=== PATIENT | male | born 1930 | race African-American/Black ===

== ENCOUNTER 2018-06-17 09:23 | Inpatient (IN) ==
[2018-06-17] MEDS ORDERED: SODIUM CHLORIDE 0.9% 500 ML IV STA (10:04)
[2018-06-17 10:30] LABS: Basophils # 0.1 10*3/uL (0.0-0.2); Basophils % 0.7 % (0.0-0.8); Eosinophils # 0.6 10*3/uL (0.0-0.87); Eosinophils % 8.4 % (0.00-10.9); Hematocrit 39.4 VOL% (42.0-52.0); Hemoglobin 12.8 GM/DL (14.0-18.0); Immature Granulocytes % 0.4 %; Immature Granulocytes Absolute 0.03 #; Lymphocytes # 1.4 10*3/uL (1.4-4.0); Mean Corpuscular HGB Conc 32.5 GM/DL (32-36); Mean Corpuscular Hemoglobin 30 PG (27-34); Mean Corpuscular Volume 93.6 FL (87-102); Mean Platelet Volume 11.6 FL (9.6-12.0); Monocytes # 0.6 10*3/uL (0.11-0.8); Monocytes % 7.9 % (1.7-12.7); Neutrophils # 4.8 10*3/uL (1.4-7.4); Neutrophils % 63.6 % (38.7-73.9); Platelet Count 213 T/CUMM (130-400); Red Blood Count 4.21 MC/CUMM (3.8-5.5); Red Cell Distribution Width 13.5 % (9.3-17.3); White Blood Count 7.5 T/CUMM (4-12)
[2018-06-17 10:46] LABS: PT Patient Result 10.5 SECS
[2018-06-17 10:52] LABS: Alanine Aminotransferase 18 U/L (16-61); Albumin 3.6 G/DL (3.4-5.0); Alkaline Phosphatase 111 U/L (45-117); Aspartate Amino Transferase 20 U/L (0-37); Blood Urea Nitrogen 120 MG/DL (7-18); Calcium 9.5 MG/DL (8.5-10.1); Glucose 114 MG/DL (74-106); Sodium 136 MMOL/L (136-145); Total Protein 8.6 G/DL (6.4-8.3)
[2018-06-17] MEDS ORDERED: cefTRIAXone 1,000 MG in SODIUM CHLORIDE 0.9% 100 ML IV STA (10:56)
[2018-06-17] MEDS ORDERED: ACETAMINOPHEN 325 MG TABLET PO PRN (11:46)
[2018-06-17] MEDS ORDERED: GLUCAGON 1 MG VIAL IM PRN (11:46)
[2018-06-17] MEDS ORDERED: ONDANSETRON 4 MG/2 ML VIAL IV PRN (11:46)
[2018-06-17] MEDS ORDERED: DEXTROSE 50% 25 GM/50 ML VIAL IV PRN (11:46)
[2018-06-17] MEDS ORDERED: LACTULOSE 20 GM/30 ML UDCUP PO PRN (11:46)
[2018-06-17] MEDS ORDERED: INFLUENZA VIRUS VACCINE 0.5 ML SYRINGE IM ONE (13:58)
[2018-06-17] MEDS: ALBUTEROL/IPRATROPIUM 3 ML NEB RESP TX SCH ×3 (14:36→23:30)
[2018-06-17] MEDS: SODIUM CHLORIDE 0.9% 1,000 ML IV SCH (15:05)
[2018-06-17] MEDS ORDERED: ALBUTEROL/IPRATROPIUM 3 ML NEB RESP TX PRN (15:23)
[2018-06-17] MEDS: INSULIN LISPRO 100 UNIT/ML SUBCUT SCH ×2 (17:09→22:12)
[2018-06-17 17:37] LABS: Barbiturates Screen,Urine Negative (Negative); Benzodiazepines Screen,Urine Negative (Negative); Cannabinoid Screen,Urine Negative (Negative); Opiate Screen,Urine Negative (Negative); Phencyclidine Screen,Urine Negative (Negative)
[2018-06-17 17:39] LABS: Apearance,Urine Slightly Hazy (Clear); Bilirubin,Urine Negative (Negative); Blood, Urine Negative (Negative); Glucose,Urine (UA) Negative (Negative); Hyaline Casts,Urine 1 /LPF (0-3); Ketones,Urine 5 mg/dL (Negative); Nitrite,Urine Negative (Negative); Protein,Urine Negative; RBC,Urine <1 /HPF (0-4); Squamous Epithelial Cell,Urine Occasional /HPF (0-10); Urine Color Yellow (Yellow); Urine Specific Gravity 1.014 (1.001-1.035); Urine Urobilinogen < 2.0 EU/DL (0.2-1.0); WBC,Urine <1 /HPF (0-6)
[2018-06-18] MEDS: SODIUM CHLORIDE 0.9% 1,000 ML IV SCH (02:28)
[2018-06-18] MEDS: ALBUTEROL/IPRATROPIUM 3 ML NEB RESP TX SCH ×6 (02:51→23:52)
[2018-06-18 04:59] LABS: Basophils % 0.5 % (0.0-0.8); Eosinophils # 0.6 10*3/uL (0.0-0.87); Eosinophils % 7.4 % (0.00-10.9); Hematocrit 33.8 VOL% (42.0-52.0); Hemoglobin 10.9 GM/DL (14.0-18.0); Immature Granulocytes % 0.2 %; Immature Granulocytes Absolute 0.02 #; Lymphocytes # 1.3 10*3/uL (1.4-4.0); Lymphocytes % 15.5 % (21.2-54.2); Mean Corpuscular HGB Conc 32.2 GM/DL (32-36); Mean Corpuscular Hemoglobin 30 PG (27-34); Mean Corpuscular Volume 93.9 FL (87-102); Mean Platelet Volume 11.9 FL (9.6-12.0); Monocytes % 11.7 % (1.7-12.7); Neutrophils # 5.6 10*3/uL (1.4-7.4); Neutrophils % 64.7 % (38.7-73.9); Platelet Count 186 T/CUMM (130-400); Red Cell Distribution Width 13.8 % (9.3-17.3); White Blood Count 8.6 T/CUMM (4-12)
[2018-06-18 05:31] LABS: Albumin 2.8 G/DL (3.4-5.0); Bilirubin,Total 0.9 MG/DL (0.2-1.0); Calcium 8.6 MG/DL (8.5-10.1); Osmolality,Calculated 321.8 MOS/KG (273-304); Potassium 4.1 MMOL/L (3.5-5.1); Total Protein 6.8 G/DL (6.4-8.3)
[2018-06-18] MEDS: INSULIN LISPRO 100 UNIT/ML SUBCUT SCH ×4 (08:29→22:19)
[2018-06-18] MEDS: ALLOPURINOL 100 MG TABLET PO SCH (08:29)
[2018-06-18] MEDS: ATORVASTATIN 40 MG TABLET PO SCH (08:29)
[2018-06-18] MEDS: DONEPEZIL 10 MG TABLET PO SCH (08:29)
[2018-06-18] MEDS: ASPIRIN EC 81 MG TABLET PO SCH (08:29)
[2018-06-18] MEDS: PANTOPRAZOLE 40 MG TABLET PO SCH (08:29)
[2018-06-18] MEDS: TAMSULOSIN 0.4 MG CAPSULE PO SCH (08:29)
[2018-06-18] MEDS: BECLOMETHASONE 40 MCG/PUFF INHALER 8.7 GM INH SCH (08:32)
[2018-06-18] MEDS ORDERED: PANTOPRAZOLE 40 MG TABLET PO SCH (09:00)
[2018-06-18] MEDS ORDERED: METOPROLOL SUCCINATE XL 100 MG TABLET PO SCH (09:00)
[2018-06-18] MEDS ORDERED: COLCHICINE 0.6 MG TABLET PO SCH (09:00)
[2018-06-18] MEDS ORDERED: METOPROLOL TARTRATE 5 MG/5 ML VIAL IV PRN (21:05)
[2018-06-18] MEDS: METOPROLOL SUCCINATE XL 25 MG TABLET PO SCH (22:19)
[2018-06-19] MEDS: SODIUM CHLORIDE 0.9% 1,000 ML IV SCH ×4 (00:56→16:50)
[2018-06-19] MEDS: ALBUTEROL/IPRATROPIUM 3 ML NEB RESP TX SCH ×6 (02:46→23:41)
[2018-06-19 05:03] LABS: Calcium 8.3 MG/DL (8.5-10.1); Osmolality,Calculated 315.3 MOS/KG (273-304); Potassium 4.7 MMOL/L (3.5-5.1)
[2018-06-19] MEDS: INSULIN LISPRO 100 UNIT/ML SUBCUT SCH ×4 (07:38→21:18)
[2018-06-19] MEDS: DONEPEZIL 10 MG TABLET PO SCH (08:05)
[2018-06-19] MEDS: METOPROLOL SUCCINATE XL 25 MG TABLET PO SCH ×2 (08:05→21:17)
[2018-06-19] MEDS: ASPIRIN EC 81 MG TABLET PO SCH (08:05)
[2018-06-19] MEDS: PANTOPRAZOLE 40 MG TABLET PO SCH (08:05)
[2018-06-19] MEDS: BECLOMETHASONE 40 MCG/PUFF INHALER 8.7 GM INH SCH (08:05)
[2018-06-19] MEDS: ATORVASTATIN 40 MG TABLET PO SCH (08:05)
[2018-06-19] MEDS: TAMSULOSIN 0.4 MG CAPSULE PO SCH (08:05)
[2018-06-19] MEDS: ALLOPURINOL 100 MG TABLET PO SCH (08:05)
[2018-06-20] MEDS: ALBUTEROL/IPRATROPIUM 3 ML NEB RESP TX SCH ×4 (03:47→14:10)
[2018-06-20 04:32] LABS: Calcium 8.1 MG/DL (8.5-10.1); Osmolality,Calculated 297.7 MOS/KG (273-304); Potassium 4.9 MMOL/L (3.5-5.1)
[2018-06-20] MEDS: SODIUM CHLORIDE 0.9% 1,000 ML IV SCH (04:52)
[2018-06-20] MEDS: ALLOPURINOL 100 MG TABLET PO SCH (09:24)
[2018-06-20] MEDS: DONEPEZIL 10 MG TABLET PO SCH (09:24)
[2018-06-20] MEDS: METOPROLOL SUCCINATE XL 25 MG TABLET PO SCH (09:24)
[2018-06-20] MEDS: ATORVASTATIN 40 MG TABLET PO SCH (09:24)
[2018-06-20] MEDS: ASPIRIN EC 81 MG TABLET PO SCH (09:24)
[2018-06-20] MEDS: TAMSULOSIN 0.4 MG CAPSULE PO SCH (09:24)
[2018-06-20] MEDS: INSULIN LISPRO 100 UNIT/ML SUBCUT SCH ×2 (09:25→12:19)
[2018-06-20] MEDS: PANTOPRAZOLE 40 MG TABLET PO SCH (09:25)
[2018-06-20] MEDS: BECLOMETHASONE 40 MCG/PUFF INHALER 8.7 GM INH SCH (09:25)
[2018-06-20 15:55] VITALS: BP 150/86
== END 2018-06-20 16:35 | disposition home health service (06) | DRG 683 ==
LOC: EDSEX → N.ED 09:23 → SUATTDRO 11:46 → N.EDINP 11:46 → N.TELEN 14:07
PROVIDERS: ADMIT Internal Medicine; ATTEND Internal Medicine Nephrology